=== PATIENT | male | born 1970 | race Caucasian/White ===

== ENCOUNTER 2021-04-19 21:43 | Emergency (ER) | payer OTHER ==
[~2021-04-19] VITALS: Ht 180.3 cm; Wt 94.8 kg
[~2021-04-19 21:43] MED LIST: BUPRENORPHINE HC8 MG SL; CLONIDINE HCL0.1 MG PO; FLONASE 0.05% N16 GM; IBU800 MG PO; ZOFRAN4 MG PO
[2021-04-19 22:08] LABS: HEMOGLOBIN 14.2 gm/dl (14.0-17.5); RED BLOOD COUNT 4.53 M/UL (4.20-5.50); WHITE BLOOD COUNT 6.8 K/UL (4.5-11.0)
[2021-04-19 22:37] LABS: BUN/CREATININE RATIO 20 (0-10)
[2021-04-20] MEDS ORDERED: AMLODIPINE BESYL5 MG PO (12:47)
[2021-04-20] MEDS ORDERED: HYDRALAZINE HC100 MG PO (12:47)
[2021-04-20] MEDS ORDERED: HYDRALAZINE HCL50 MG PO ×2 (12:48→17:23)
[2021-04-20] MEDS ORDERED: MELATONIN5 M2 PO (12:48)
[2021-04-20] MEDS ORDERED: PANTOPRAZOLE SO20 MG PO (12:48)
[2021-04-20] MEDS ORDERED: PROPRANOLOL HCL20 MG PO (12:51)
[2021-04-20] MEDS ORDERED: MUCINEX D ER 61 EACH PO (12:51)
[2021-04-20] MEDS ORDERED: ASPIRIN EC81 MG PO (17:23)
[2021-04-20] MEDS ORDERED: LISINOPRIL10 MG PO (17:23)
[2021-04-20] MEDS ORDERED: LIPITOR20 MG PO (17:33)
[2021-04-20] MEDS ORDERED: BACLOFEN10 MG PO (23:11)
[2021-04-20] MEDS ORDERED: TRAZODONE HCL150 MG PO (23:12)
[2021-04-20] MEDS ORDERED: TYLENOL325 MG PO (23:13)
== END 2021-04-20 06:38 | disposition left against medical advice (07) ==
LOC: ER1 21:43 → CDU 22:59 → ER1 22:59 → CDU 22:59 → ER1 04-20 06:38
PROVIDERS: Family Medicine
DX: R07.9 Chest pain, unspecified (principal); Z20.822 Contact with and (suspected) exposure to COVID-19; F17.210 Nicotine dependence, cigarettes, uncomplicated; F19.10 Other psychoactive substance abuse, uncomplicated
CPT/HCPCS: 71045; 80053; 80061; 82550; 82553; 83874; 84484; 85025; 85610; 93005; 96372; 99285; J1650; U0002

== ENCOUNTER 2021-04-20 08:06 | Inpatient (IN) | payer OTHER ==
[~2021-04-20] VITALS: Ht 180.3 cm; Wt 94.8 kg
[2021-04-20 10:00] LABS: HEMOGLOBIN 15.3 gm/dl (14.0-17.5); RED BLOOD COUNT 4.91 M/UL (4.20-5.50); WHITE BLOOD COUNT 5.5 K/UL (4.5-11.0)
[2021-04-20 10:28] LABS: BUN/CREATININE RATIO 23 (0-10)
[2021-04-20] MEDS ORDERED: HYDRALAZINE HC100 MG PO (12:47)
[2021-04-20] MEDS ORDERED: AMLODIPINE BESYL5 MG PO (12:47)
[2021-04-20] MEDS ORDERED: HYDRALAZINE HCL50 MG PO ×2 (12:48→17:23)
[2021-04-20] MEDS ORDERED: PANTOPRAZOLE SO20 MG PO (12:48)
[2021-04-20] MEDS ORDERED: MELATONIN5 M2 PO (12:48)
[2021-04-20] MEDS ORDERED: PROPRANOLOL HCL20 MG PO (12:51)
[2021-04-20] MEDS ORDERED: MUCINEX D ER 61 EACH PO (12:51)
[2021-04-20] MEDS ORDERED: LISINOPRIL10 MG PO (17:23)
[2021-04-20] MEDS ORDERED: ASPIRIN EC81 MG PO (17:23)
[2021-04-20] MEDS ORDERED: LIPITOR20 MG PO (17:33)
[2021-04-20] MEDS ORDERED: BACLOFEN10 MG PO (23:11)
[2021-04-20] MEDS ORDERED: TRAZODONE HCL150 MG PO (23:12)
[2021-04-20] MEDS ORDERED: TYLENOL325 MG PO (23:13)
== END 2021-04-20 18:41 | disposition home or self-care (01) | DRG 305 ==
LOC: ER1 08:06 → CDU 09:59
PROVIDERS: Physician Assistant; ADMIT Emergency Medicine
DX: I16.0 Hypertensive urgency (principal); I20.9 Angina pectoris, unspecified; Z20.822 Contact with and (suspected) exposure to COVID-19; F19.10 Other psychoactive substance abuse, uncomplicated; E78.5 Hyperlipidemia, unspecified; F17.210 Nicotine dependence, cigarettes, uncomplicated; Z79.01 Long term (current) use of anticoagulants; Z79.82 Long term (current) use of aspirin; Z80.1 Family history of malignant neoplasm of trachea, bronchus and lung; Z82.49 Family history of ischemic heart disease and other diseases of the circulatory system; Z83.3 Family history of diabetes mellitus; Z98.890 Other specified postprocedural states
CPT/HCPCS: 78452; 80053; 82550; 82553; 83874; 84484; 85025; 93005; 93017; 99285; A9502; J2785